=== PATIENT | male | born 1965 | race Caucasian/White ===

== ENCOUNTER → 2016-09-12 | Outpatient (CLI) | payer OTHER ==
[~2016-09-12] VITALS: Ht 188 cm; Wt 102.1 kg
[~2016-09-12] MED LIST: CENTRUM SILVER1 EAC2 PO; FISH OIL 1,001000 M2 PO
--- NOTE | ~2016-09-12 | S ---
[facility] [place] [address] SURGICAL PATH RPT PROCEDURE Name: MURTAZA ENAMORADO Room #: REG [facility]#: [id number] Admission: 09/12/16 Date of : 67 Discharge: Report #: [id number] Path Case #: [id number] PATHOLOGY REPORT COLLECTION DATE: 09/12/2016 RECEIVED DATE: 09/12/2016 SUBMITTING PHYS: Dr. Heath Pelaez OTHER PHYS: Dr. Tres Booth SPECIMEN(S) RECEIVED: A.Polyp 70 cm B.Polyp 50 cm * * * * * * * * * * * * FINAL DIAGNOSIS: A. Polyp, 70 cm, endoscopic biopsy: - Hyperplastic polyp. - Negative for dysplasia. B. Polyp, 50 cm, endoscopic biopsy: - Tubular adenoma arising in a background of hyperplastic polyp. - Negative for high grade dysplasia. (IUV:csd; d/t: 09/13/2016) PATHOLOGIST: Shelley Fischer M.D. REPORT ELECTRONICALLY SIGNED BY: Shelley Fischer M.D. DATE/TIME: 09/13/2016 14:34 * * * * * * * * * * * * GROSS PATHOLOGY: A. Received in formalin labeled "Murtaza Enamorado, polyp 70 cm," is a segment of martin soft tissue measuring 0.5 cm in maximum dimension. The specimen is submitted entirely in cassette A1. B. Received in formalin labeled "Murtaza Enamorado, polyp 50 cm," is a segment of martin soft tissue measuring 0.5 cm in maximum dimension. The specimen is submitted entirely in cassette B1. (CAA; 09/12/2016) CLINICAL HISTORY: History of polyps, colon polyps INITIAL CPT CODE(S): A; 66385 B; 98141 Professional services performed by [employer] at [facility] [address] [place] [address] SURGICAL PATH RPT PROCEDURE Name: MURTAZA ENAMORADO Room #: REG [facility]#: [id number] Admission: 09/12/16 Date of : 67 Discharge: Report #: [id number] Path Case #: [id number] [address] [facility] , [place] [address] Technical services performed by [employer] at [address] [place] [address], [facility] [address] [address]. [place] [address] PHONE: [phone] DIRECTOR: Guzman Garza M.D. * * * END OF REPORT * * *
--- NOTE | ~2016-09-12 | P ---
[facility] [place] [address] PROCEDURE REPORT Name: MURTAZA MOLINA Anuj Room #: REG [facility]#: [id number] Admission: 09/12/16 Attend Phys: Heath Pelaez MD Discharge: Date of : 67 Report #: [id number] THIS REPORT FOR: //name// CC: Heath Booth DO DATE OF SERVICE: 09/12/2016 BRIEF HISTORY: The patient is a 51-year-old male with history of colon polyps, last colon exam was 6 years ago. He presents for a routine surveillance colonoscopy due to history of colon polyps. PREOPERATIVE DIAGNOSIS: History of colon polyps. POSTOPERATIVE DIAGNOSES: 1. Diminutive polyp at 70 cm. 2. Diminutive polyp at 50 cm. MEDICATIONS: Deep sedation with propofol per anesthesia. SPECIMEN: 1. Polyp at 70 cm. 2. Polyp at 80 cm. ESTIMATED BLOOD LOSS: 3 mL. PROCEDURE: Colonoscopy to cecum and terminal ileum with biopsy. FINDINGS: Prior to propofol sedation, procedure of colonoscopy discussed with the patient as well as potential risks and its complications. He indicates he understands and desires to proceed. DESCRIPTION OF PROCEDURE: With the patient in left lateral decubitus position, digital examination was completed which revealed no abnormalities. Subsequently, the Gaudena video colonoscope was introduced in the rectum, advanced under direct vision to the cecum. Done with minimal difficulty. The cecum was identified by the ileocecal valve and the appendiceal orifice. I was able to visualize the distal segment of terminal ileum, which was inspected and noted to be unremarkable. At that point, the scope was slowly withdrawn and careful circumferential views obtained including retroflexing the scope in the ascending colon. Upon slow withdrawal of the scope, the prep was noted to be excellent. Mucosa normal limits, normal vascular pattern, normal light reflex. No inflammatory changes were seen. No mass lesions were seen. As we withdrew the scope, no abnormalities were noted until the left colon was reached and at 70 cm, a diminutive polyp seen and removed by biopsy. The scope was further [address] [address] PROCEDURE REPORT Name: MURTAZA MOLINA Room #: REG [facility].#: [id number] Admission: 09/12/16 Attend Phys: Heath Pelaez MD Discharge: Date of : 67 Report #: [id number] withdrawn and another diminutive polyp seen and removed by biopsy at 50 cm. Scope was withdrawn through the remainder of the colon and no additional polyps were seen. Scope was withdrawn in the rectum. Upon retroflexion, no abnormalities were seen. Scope was withdrawn. The patient tolerated the procedure well. CONDITION OF THE PATIENT UPON DISCHARGE: Following procedure, the patient drowsy, aroused, conversant and will be discharged home when fully ambulatory. INSTRUCTIONS TO THE PATIENT AND FAMILY AT THE TIME OF DISCHARGE: Two polyps identified and removed as described above. We will follow up on the path and make surveillance recommendations. If one or both polyps are adenomas, he is to return in 5 years; if neither are adenomas, then 10 years would be indicated. Last colonoscopy was 6 years ago. Withdrawal time from the cecum was 12 minutes. <ELECTRONICALLY SIGNED> By: Heath Pelaez MD 09/13/16 1224 1112 1323 Heath Pelaez MD /nt
== END | disposition home or self-care (01) ==
LOC: GI 08:26
DX: D12.5 Benign neoplasm of sigmoid colon (principal); K63.5 Polyp of colon; K21.9 Gastro-esophageal reflux disease without esophagitis; Z98.890 Other specified postprocedural states
CPT/HCPCS: 62110; 62900